=== PATIENT | male | born 1965 | race Caucasian/White ===

== ENCOUNTER 2021-02-13 17:37 | Emergency (ER) | payer SELFPAY ==
[2021-02-13] MEDS ORDERED: Lidocaine 1% with EPINEPHrine 1:100,000 50 ML MDV INFILT STA (18:07)
[2021-02-13] MEDS ORDERED: HYDROmorphone 1 MG/ML Syringe IVPUSH ONE (18:17)
[2021-02-13] MEDS ORDERED: LORazepam 2 MG/ML SDV IVPUSH ONE (18:17)
[2021-02-13] MEDS ORDERED: Iopamidol 612 MG/ML 100 ML Bottle IV SCH (18:30)
[2021-02-13] MEDS ORDERED: Sodium Chloride 0.9% 80 ML IV SCH (18:30)
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
[2021-02-13] MEDS ORDERED: Methocarbamol 500 MG Tab PO ONE (21:12)
--- NOTE | 2021-02-14 10:36 | CR ---
CHEST: 2 view CLINICAL HISTORY:Strangulation COMPARISON:None FINDINGS: The heart size, pulmonary vascularity and hilar structures are normal. No infiltrate effusion or pneumothorax is seen. There is a small nodular density over the right lower lung field which is felt to be nipple shadow. Pulmonary nodule is not absolutely excluded. IMPRESSION: No acute cardiopulmonary process. Nodular density in the right lower lung field thought to represent a nipple shadow. Repeat PA chest with nipple markers is recommended on a nonacute basis
== END 2021-02-13 22:17 | disposition home or self-care (01) ==
LOC: JP.ED 17:37
DX: S06.0X0A Concussion without loss of consciousness, initial encounter (principal); S02.2XXA Fracture of nasal bones, initial encounter for closed fracture; S02.32XA Fracture of orbital floor, left side, initial encounter for closed fracture; S02.832A Fracture of medial orbital wall, left side, initial encounter for closed fracture; S01.112A Laceration without foreign body of left eyelid and periocular area, initial encounter; S00.83XA Contusion of other part of head, initial encounter; S19.9XXA Unspecified injury of neck, initial encounter; M25.511 Pain in right shoulder; M25.512 Pain in left shoulder; I10 Essential (primary) hypertension; Z79.899 Other long term (current) drug therapy; Y04.0XXA Assault by unarmed brawl or fight, initial encounter
CPT/HCPCS: 12013; 36415; 70450; 70486; 71046; 72127; 80048; 85027; 96374; 96375; 99285; A9270; J1170; J2060; Q9967